=== PATIENT | male | born 1930 | race Caucasian/White ===

== ENCOUNTER 2016-09-16 15:55 | Inpatient (IN) | payer MEDICARE, OTHER ==
[~2016-09-16 15:55] MED LIST: ACETAMINOPHEN500 M4 PO; ADULT ASPIRIN81 MG; AMARYL4 M1 PO; AMARYL4 MG; AMARYL4 MG PO; ANTIVERT25 M1 PO; ASPIR 8181 M1 PO; ASPIR 8181 MG PO; COLACE100 M1 PO; DIOVAN160 M; DIOVAN160 M1 PO; DIOVAN320 MG PO; FINASTERIDE5 M2 PO; HYDROCODON-ACE1 EA16 PO; HYTRIN10 MG; HYTRIN5 MG PO; IMDUR30 MG; KEFLEX500 M4 PO; KLOR-CON M20 MEQ/TAB PO; KLOR-CON M2020 MEQ PO; LASIX40 M1 PO; LIPITOR10 MG; LOPRESSOR50 MG; MAXZIDE-25 MG1 UDTAB; MEDROL4 MG/DOSE- PO; MELOXICAM15 M1 PO; MIRALAX PO; MULTIVITAMIN1 TAB; MULTIVITAMIN1 TAB PO; MULTIVITAMINS1 EAC6 PO; NEURONTIN300 M1 PO; NEURONTIN300 MG; NEURONTIN300 MG PO; NORCO 5-325 TA1 EACH PO; NORCO 5/325 TAB1 TAB; NORCO 5/3251 TAB PO; NORVASC5 M2 PO; PENICILLIN V P250 MG; PLAVIX75 MG; PRAVACHOL10 MG PO; PRILOSEC; PRILOSEC10 MG PO; PROSCAR5 MG; SENNA PLUS TAB1 EAC1 PO; SENNA8.6 M2 PO; TERAZOSIN HCL5 MG PO; TRIAMTERENE-HCT1 TAB; TYLENOL EXTRA500 M1 PO; TYLENOL EXTRA500 MG PO; VITAMIN D2000 UNI1 PO; ZETIA10 M1 PO; ZETIA10 MG; ZETIA10 MG PO
[2016-09-16 17:04] LABS: BASO % 0.2 % (0-2); EOS % 1.3 % (0-7); EOSINOPHIL ABSOLUTE COUNT 0.1 tho/cmm (0.0-0.7); HGB-HEMOGLOBIN 13.5 gm/dl (13.5-17.0); IMMATURE GRANULOCYTES ABSOLUTE 0.01 tho/cmm (0-0.03); IMMATURE GRANULOCYTES PERCENT 0.2 % (0-0.3); LYMPH % 18.2 % (20-45); MCH (MEAN CORPUSCULAR HGB) 30.4 pg (28.0-32.0); MCHC MEAN CORPUSCULAR HGB CONC 33.8 % (32.0-36.0); MCV (MEAN CELL VOLUME) 90.1 fl (82.0-96.0); MEAN PLATELET VOLUME 10.1 cmc (9.4-12.4); MONO % 4.8 % (0-12); MONOCYTE ABSOLUTE COUNT 0.3 tho/cmm (0.0-1.2); NEUTROPHIL ABSOLUTE COUNT 4.1 tho/cmm (1.6-8.0); NEUTROPHIL-AUTOMATED 4.1 tho/cmm (1.6-8.0); NEUTROPHILS % 75.3 % (40-80); PLATELET COUNT 189 tho/cmm (150-450); RED BLOOD COUNT 4.44 mil/cmm (4.40-5.70); RED CELL DISTRIBUTION WIDTH 12.8 % (12.4-16.4); WHITE BLOOD COUNT 5.4 tho/cmm (4.0-10.0)
[2016-09-16 17:20] LABS: ALB/GLOB RATIO 0.9 (0.8-2.0); ALBUMIN 3.7 g/dl (3.5-5.0); ALKALINE PHOSPHATASE 63 U/L (33-138); ALT/SGPT 39 U/L (12-78); ANION GAP 12 mmol/L (0-20); AST/SGOT 30 U/L (10-40); BILIRUBIN,TOTAL 0.4 mg/dl (0.0-1.5); BLOOD UREA NITROGEN 27 mg/dl (6-24); CALCIUM 9.5 mg/dl (8.5-10.5); CARBON DIOXIDE-VENOUS 27 mmol/L (22-32); CHLORIDE 103 mmol/l (96-110); CREATININE 1.81 mg/dl (0.60-1.30); GLUCOSE 245 mg/dL (70-110); POTASSIUM 4.7 mmol/L (3.7-5.1); SODIUM 137 mmol/L (135-145); eGFR VALUE FOR BLACK 38 mL/Min
[2016-09-16 17:38] LABS: URINE LEUKOCYTE ESTERASE NEGATIVE (NEG); URINE PROTEIN NEGATIVE (NEG); URINE SPECIFIC GRAVITY 1.015 (1.003-1.030)
[2016-09-16 17:39] LABS: URINE APPEARANCE CLEAR; URINE BILIRUBIN NEGATIVE (NEG); URINE BLOOD NEGATIVE (NEG); URINE COLOR YELLOW; URINE GLUCOSE (UA) MODERATE (NEG); URINE KETONE NEGATIVE (NEG); URINE NITRITE NEGATIVE (NEG)
[2016-09-16 17:45] LABS: URINE EPITHELIAL CELLS 0 /[HPF] (0-10); URINE RBC 0 /[HPF] (0-5); URINE WBC 0 /[HPF] (0-5)
[2016-09-16] MEDS ORDERED: PROAIR RESPICL90 MCG INH (18:48)
[2016-09-16] MEDS ORDERED: OSELTAMIVIR PO (18:51)
[2016-09-16] MEDS ORDERED: MOBIC15 M2 PO (18:52)
[2016-09-16] MEDS ORDERED: POTASSIUM CHLO20 ME3 PO (18:54)
[2016-09-16] MEDS ORDERED: SYMBICORT 160-1 PUFF INH (18:55)
[2016-09-17 02:27] LABS: PROTHROMBIN TIME 11.3 SECONDS (9.0-13.6)
[2016-09-17 02:57] LABS: ANION GAP 11 mmol/L (0-20); BLOOD UREA NITROGEN 26 mg/dl (6-24); C-REACTIVE PROTEIN 0.4 mg/dl (0-0.9); CALCIUM 8.7 mg/dl (8.5-10.5); CARBON DIOXIDE-VENOUS 26 mmol/L (22-32); CHLORIDE 105 mmol/l (96-110); CHOLESTEROL 159 mg/dl (120-200); GLUCOSE 186 mg/dL (70-110); HDL CHOLESTEROL 41 mg/dl (40-60); LDL CHOLESTEROL 88 mg/dl (0-99); MAGNESIUM 2.3 mg/dl (1.8-2.6); PHOSPHOROUS 2.7 mg/dl (2.5-4.9); SODIUM 138 mmol/L (135-145); VLDL 31 mg/dl (0-30); eGFR VALUE FOR BLACK 52 mL/Min
[2016-09-17 02:58] LABS: TRIGLYCERIDES 154 mg/dl (<149)
[2016-09-17 03:01] LABS: TSH-THYROID STIMULATING HORM. 1.43 uIU/ml (0.40-3.80)
[2016-09-17] MEDS ORDERED: MEN 50 PLUS MU1 EACH PO (15:48)
[2016-09-17] MEDS ORDERED: SENNA8.6 M2 PO (15:48)
[2016-09-17] MEDS ORDERED: VITAMIN D31000 UNI3 PO (15:49)
[2016-09-17] MEDS ORDERED: ASPIRIN EC81 MG PO (15:51)
[2016-09-17] MEDS ORDERED: ACETAMINOPHEN500 M4 PO (15:51)
[2016-09-17] MEDS ORDERED: AMARYL4 M1 PO (15:53)
[2016-09-19] MEDS ORDERED: ARICEPT5 M1 PO (13:36)
[2016-09-19] MEDS ORDERED: DIOVAN160 M1 PO (13:36)
== END 2016-09-19 15:30 | DRG 242 ==
LOC: EDMED 15:55 → EMR2 20:19 → 5EB 21:35
PROVIDERS: Emergency Medicine; ADMIT Internal Medicine
DX: I44.1 Atrioventricular block, second degree (principal); G93.40 Encephalopathy, unspecified; F03.90 Unspecified dementia, unspecified severity, without behavioral disturbance, psychotic disturbance, mood disturbance, and anxiety; E11.22 Type 2 diabetes mellitus with diabetic chronic kidney disease; I12.9 Hypertensive chronic kidney disease with stage 1 through stage 4 chronic kidney disease, or unspecified chronic kidney disease; N18.3 Chronic kidney disease, stage 3 (moderate); E66.9 Obesity, unspecified; I25.10 Atherosclerotic heart disease of native coronary artery without angina pectoris; E78.5 Hyperlipidemia, unspecified; N40.0 Benign prostatic hyperplasia without lower urinary tract symptoms; R91.8 Other nonspecific abnormal finding of lung field; Z68.37 Body mass index [BMI] 37.0-37.9, adult; Z88.0 Allergy status to penicillin; Z88.8 Allergy status to other drugs, medicaments and biological substances; Z79.899 Other long term (current) drug therapy; Z95.5 Presence of coronary angioplasty implant and graft; Z96.651 Presence of right artificial knee joint; Z95.3 Presence of xenogenic heart valve
CPT/HCPCS: G8978-GP-CI; G8978-GP-CJ; G8979-GP-CI; G8979-GP-CJ; J0360; J1650; J1815; J2250; J3010; J3370; J7030